=== PATIENT | male | born 1940 | race Two or more races ===

== ENCOUNTER 2022-09-25 23:08 | Inpatient (IN) | payer BC ==
[~2022-09-25] VITALS: Ht 175.3 cm; Wt 106.3 kg
[2022-09-26] VITALS (90 sets, daily range): BP systolic 84–204; BP diastolic 35–106
[2022-09-26] MEDS ORDERED: NOREPINEPHRINE 8 MG/250ML KIT 0 ML IV ONE (00:54)
[2022-09-26] MEDS ORDERED: AMIODARONE 450mg/250ml AE 250 ML IV ONE (00:54)
[2022-09-26] MEDS ORDERED: LIDOCAINE 4MG/ML IV SOLN 500 ML IV ONE (00:54)
[2022-09-26] MEDS: LIDOCAINE 4MG/ML IV SOLN 500 ML IV SCH (01:00)
[2022-09-26] MEDS ORDERED: FUROSEMIDE INJECTION 10 ML ONE (01:04)
[2022-09-26] MEDS ORDERED: ASPirin 325 MG TAB PO ONE (02:30)
[2022-09-26] MEDS ORDERED: FUROSEMIDE INJECTION 100 MG in SODIUM CHL 0.9% 100 ML IV SCH (02:30)
[2022-09-26] MEDS ORDERED: LORazepam 0.5 MG TAB PO ONE (02:30)
[2022-09-26] MEDS ORDERED: AMIODARONE 450mg/250ml AE 250 ML IV SCH (02:45)
[2022-09-26 03:26] LABS: Basophils # (auto) 0.1 10 ^3/uL (0-0.2); Basophils % (auto) 0.5 % (0.0-2.0); Eosinophils # (auto) 0.1 10 ^3/uL (0-0.8); Eosinophils % (auto) 0.5 % (0.0-7.0); Hematocrit 34.5 % (41.0-53.0); Hemoglobin 11.5 g/dL (13.5-17.5); Lymphocytes # (auto) 1.2 10 ^3/uL (0.4-5.4); Lymphocytes % (auto) 5.5 % (10.0-50.0); Mean Corpuscular Hemoglobin 32.3 pg (28.0-32.0); Mean Corpuscular Hgb Conc. 33.4 g/dL (32.0-36.0); Mean Corpuscular Volume 96.8 fL (80.0-100.0); Monocytes # (auto) 2.2 10 ^3/uL (0-1.3); Monocytes % (auto) 10.1 % (0.0-12.0); Neutrophils # (auto) 18.2 10 ^3/uL (1.6-8.6); Neutrophils % (auto) 83.4 % (37.0-80.0); Red Blood Cells 3.57 10^6/uL (4.5-5.90); Red Cell Distribution Width 13.1 % (11.8-14.3); White Blood Cell 21.8 10^3/uL (4.4-10.8)
[2022-09-26 03:43] LABS: Calcium 8.5 mg/dL (8.5-10.1); INR 1.12 (0.9-1.15); Partial Thromboplastin Time 29.9 sec (24.6-33.4); Potassium 3.4 mmol/L (3.5-5.1)
[2022-09-26 03:47] LABS: Albumin 2.3 g/dL (3.4-5.0); BUN/Creatinine Ratio 27.5; Magnesium 2.3 mg/dL (1.6-2.6)
[2022-09-26 03:58] LABS: Bilirubin, Total 0.4 mg/dL (0.2-1.0); Total Protein 6.4 g/dL (6.4-8.2)
[2022-09-26] MEDS ORDERED: HYDROcodone-ACET 5/325MG TAB PO PRN (04:45)
[2022-09-26] MEDS ORDERED: ONDANSETRON HCL 4 MG/2 ML VIAL IV PRN (04:45)
[2022-09-26] MEDS ORDERED: hydrALAZINE HCL 20 MG/ML VL IV PRN (04:45)
[2022-09-26] MEDS ORDERED: NITROGLYCERIN 0.4 MG SL TAB SL PRN (04:45)
[2022-09-26] MEDS ORDERED: cefTRIAXone 1GM/50ML D5W 50 ML IV ONE (04:45)
[2022-09-26] MEDS ORDERED: MORPHINE SULFATE INJ 2 MG/ml SYRG IV PRN ×2 (04:45)
[2022-09-26] MEDS ORDERED: LORazepam 2MG/ML-1ML VIAL IV PRN ×3 (04:45→13:45)
[2022-09-26] MEDS ORDERED: HEPARIN DRIP/D5W 100UNITS/ML 250 ML IV SCH ×2 (05:45→09:45)
[2022-09-26] MEDS ORDERED: HEPARIN IN NS 1000Units/500mL 0 ML ONE (06:08)
[2022-09-26 09:31] LABS: INR 1.12 (0.9-1.15); Partial Thromboplastin Time 21.6 sec (24.6-33.4)
[2022-09-26] MEDS ORDERED: HEPARIN SODIUM (PORCINE) 5000 UNITS/ML 1ML VIAL SC SCH (10:00)
[2022-09-26] MEDS: AMIODARONE 450mg/250ml AE 250 ML IV SCH ×2 (10:12→22:49)
[2022-09-26] MEDS: ASPirin 81 mg TAB PO SCH (10:13)
[2022-09-26] MEDS: FOLIC ACID 1 MG TAB PO SCH (10:13)
[2022-09-26] MEDS: TAMSULOSIN HYDROCHLORIDE 0.4 MG CAP PO SCH (10:13)
[2022-09-26] MEDS: FUROSEMIDE 40 MG/4 ML VIAL IV SCH (10:14)
[2022-09-26] MEDS: FAMOTIDINE (10MG/ML) 2ML VL IV SCH ×2 (10:14→21:51)
[2022-09-26] MEDS: THIAMINE HCL 100 MG TAB PO SCH (10:24)
[2022-09-26] MEDS ORDERED: LIDOCAINE VISCOUS 2% 15ML UD ONE (11:34)
[2022-09-26] MEDS: HEPARIN DRIP/D5W 100UNITS/ML 250 ML IV SCH (13:00)
[2022-09-26] MEDS ORDERED: ALPRAZolam 0.25 MG TAB PO PRN (13:30)
[2022-09-26] MEDS ORDERED: ETOMIDATE (2MG/ML) 20ML VIAL IV ONE ×3 (14:23→14:45)
[2022-09-26] MEDS ORDERED: ROCURONIUM 10MG/ML 10ML VIAL IV ONE ×2 (14:23→14:45)
[2022-09-26] MEDS ORDERED: PROPOFOL 100 ML IV ONE (14:24)
[2022-09-26] MEDS ORDERED: fentaNYL Drip 2500mCg/250mlNS 250 ML IV ONE (14:24)
[2022-09-26] MEDS: fentaNYL Drip 2500mCg/250mlNS 250 ML IV SCH (14:50)
[2022-09-26] MEDS: PROPOFOL 100 ML IV SCH (14:50)
[2022-09-26] MEDS ORDERED: MIDAZOLAM DRIP 50 mg/50mL 50 ML IV ONE (16:59)
[2022-09-26] MEDS: NOREPINEPHRINE 8 MG/250ML KIT 250 ML IV SCH ×2 (17:00→20:00)
[2022-09-26] MEDS ORDERED: VANCOMYCIN PER PHARMACY 0 MG IV SCH (17:15)
[2022-09-26] MEDS: MIDAZOLAM DRIP 50 mg/50mL 50 ML IV SCH (17:15)
[2022-09-26] MEDS: CEFEPIME 2 GM in SODIUM CHL 0.9% 50 ML IV SCH (18:32)
[2022-09-26] MEDS ORDERED: VANCOMYCIN 1GM/250ML 250 ML IV ONE (21:00)
[2022-09-26] MEDS: ATORVASTATIN 20 MG TAB PO SCH (21:51)
[2022-09-26] MEDS: ACETAMINOPHEN 325 MG TAB PO PRN (21:51)
[2022-09-26 23:44] LABS: INR 1.17 (0.9-1.15); Partial Thromboplastin Time 38.7 sec (24.6-33.4)
[2022-09-27] VITALS (101 sets, daily range): BP systolic 95–162; BP diastolic 44–70
[2022-09-27] MEDS: AMIODARONE 450mg/250ml AE 250 ML IV SCH ×2 (03:42→13:39)
[2022-09-27] MEDS: MIDAZOLAM DRIP 50 mg/50mL 50 ML IV SCH ×2 (03:42→17:19)
[2022-09-27 04:11] LABS: Hematocrit 33.3 % (41.0-53.0); Hemoglobin 11.3 g/dL (13.5-17.5); Mean Corpuscular Hemoglobin 32.6 pg (28.0-32.0); Mean Corpuscular Hgb Conc. 33.9 g/dL (32.0-36.0); Mean Corpuscular Volume 96.4 fL (80.0-100.0); Red Blood Cells 3.46 10^6/uL (4.5-5.90); Red Cell Distribution Width 13.2 % (11.8-14.3); White Blood Cell 20.3 10^3/uL (4.4-10.8)
[2022-09-27 04:28] LABS: INR 1.18 (0.9-1.15); Partial Thromboplastin Time 41.8 sec (24.6-33.4)
[2022-09-27 04:31] LABS: Albumin 2.3 g/dL (3.4-5.0); Calcium 8.3 mg/dL (8.5-10.1); Potassium 3.6 mmol/L (3.5-5.1)
[2022-09-27 04:36] LABS: BUN/Creatinine Ratio 24.1; Bilirubin, Total 0.6 mg/dL (0.2-1.0); Total Protein 6.4 g/dL (6.4-8.2)
[2022-09-27 04:48] LABS: Basophils % (manual) 0 (0.0-2.0); Blast Cells 0; Eosinophils % (manual) 0 (0-7); Metamyelocytes % 0; Myelocytes % 0; Promyelocytes % 0; Reactive Lymphocytes 0
[2022-09-27] MEDS: CEFEPIME 2 GM in SODIUM CHL 0.9% 50 ML IV SCH ×2 (05:04→17:11)
[2022-09-27] MEDS: HEPARIN DRIP/D5W 100UNITS/ML 250 ML IV SCH ×2 (07:44→14:02)
[2022-09-27 08:10] LABS: Band Neutrophils % (manual) 6; Lymphocytes % (manual) 5 (10.0-50.0); Monocytes % (manual) 6 (0-12)
[2022-09-27] MEDS ORDERED: cefTRIAXone 1GM/50ML D5W 50 ML IV SCH (09:00)
[2022-09-27] MEDS: LIDOCAINE 4MG/ML IV SOLN 500 ML IV SCH (10:30)
[2022-09-27] MEDS: ASPirin 81 mg TAB PO SCH (10:31)
[2022-09-27] MEDS: FUROSEMIDE 40 MG/4 ML VIAL IV SCH (10:31)
[2022-09-27] MEDS: FAMOTIDINE (10MG/ML) 2ML VL IV SCH ×2 (10:31→21:33)
[2022-09-27] MEDS: FOLIC ACID 1 MG TAB PO SCH (10:31)
[2022-09-27] MEDS: THIAMINE HCL 100 MG TAB PO SCH (10:32)
[2022-09-27] MEDS: fentaNYL Drip 2500mCg/250mlNS 250 ML IV SCH (10:34)
[2022-09-27] MEDS: ACETAMINOPHEN 325 MG TAB PO PRN (10:36)
[2022-09-27 11:23] LABS: INR 1.13 (0.9-1.15); Partial Thromboplastin Time 42.6 sec (24.6-33.4)
[2022-09-27] MEDS ORDERED: VANCOMYCIN 1GM/250ML 250 ML IV ONE (12:00)
[2022-09-27] MEDS: PROPOFOL 100 ML IV SCH (14:30)
[2022-09-27 17:15] LABS: INR 1.13 (0.9-1.15); Partial Thromboplastin Time 43.6 sec (24.6-33.4)
[2022-09-27] MEDS: TAMSULOSIN HYDROCHLORIDE 0.4 MG CAP PO SCH (17:37)
[2022-09-27] MEDS: ATORVASTATIN 20 MG TAB PO SCH (21:33)
[2022-09-28] VITALS (100 sets, daily range): BP systolic 106–151; BP diastolic 35–67
[2022-09-28] MEDS: AMIODARONE 450mg/250ml AE 250 ML IV SCH (02:24)
[2022-09-28] MEDS: MIDAZOLAM DRIP 50 mg/50mL 50 ML IV SCH (02:25)
[2022-09-28 04:42] LABS: Basophils # (auto) 0.1 10 ^3/uL (0-0.2); Basophils % (auto) 0.2 % (0.0-2.0); Eosinophils # (auto) 0.3 10 ^3/uL (0-0.8); Eosinophils % (auto) 1.4 % (0.0-7.0); Hemoglobin 10.5 g/dL (13.5-17.5); Lymphocytes # (auto) 0.8 10 ^3/uL (0.4-5.4); Lymphocytes % (auto) 3.2 % (10.0-50.0); Mean Corpuscular Hemoglobin 32.7 pg (28.0-32.0); Mean Corpuscular Volume 96.3 fL (80.0-100.0); Monocytes # (auto) 2.1 10 ^3/uL (0-1.3); Neutrophils # (auto) 20.5 10 ^3/uL (1.6-8.6); Neutrophils % (auto) 86.2 % (37.0-80.0); Red Blood Cells 3.22 10^6/uL (4.5-5.90); Red Cell Distribution Width 13.2 % (11.8-14.3); White Blood Cell 23.8 10^3/uL (4.4-10.8)
[2022-09-28 04:46] LABS: INR 1.12 (0.9-1.15); Partial Thromboplastin Time 40.7 sec (24.6-33.4)
[2022-09-28] MEDS: CEFEPIME 2 GM in SODIUM CHL 0.9% 50 ML IV SCH ×2 (05:03→17:27)
[2022-09-28 05:14] LABS: Calcium 8.5 mg/dL (8.5-10.1); Potassium 4.1 mmol/L (3.5-5.1)
[2022-09-28 05:16] LABS: BUN/Creatinine Ratio 27.5
[2022-09-28 05:19] LABS: Bilirubin, Total 0.5 mg/dL (0.2-1.0); Total Protein 6.3 g/dL (6.4-8.2)
[2022-09-28] MEDS: HEPARIN DRIP/D5W 100UNITS/ML 250 ML IV SCH (08:38)
[2022-09-28] MEDS: FAMOTIDINE (10MG/ML) 2ML VL IV SCH ×2 (09:57→22:01)
[2022-09-28] MEDS: FUROSEMIDE 40 MG/4 ML VIAL IV SCH (09:57)
[2022-09-28] MEDS: FOLIC ACID 1 MG TAB PO SCH (09:57)
[2022-09-28] MEDS: THIAMINE HCL 100 MG TAB PO SCH (09:57)
[2022-09-28] MEDS: ASPirin 81 mg TAB PO SCH (09:57)
[2022-09-28] MEDS ORDERED: VANCOMYCIN 1GM/250ML 250 ML IV ONE (10:00)
[2022-09-28 11:35] LABS: INR 1.38 (0.9-1.15); Partial Thromboplastin Time 27.9 sec (24.6-33.4)
[2022-09-28] MEDS: PROPOFOL 100 ML IV SCH (14:30)
[2022-09-28] MEDS ORDERED: GENTAMICIN SULFATE 80 MG in D5W 5% 100 ML IV SCH (16:00)
[2022-09-28] MEDS ORDERED: GENTAMICIN PER PHARMACY 0 ML IV SCH (16:00)
[2022-09-28] MEDS: NOREPINEPHRINE 8 MG/250ML KIT 250 ML IV SCH (17:00)
[2022-09-28] MEDS: TAMSULOSIN HYDROCHLORIDE 0.4 MG CAP PO SCH (17:27)
[2022-09-28] MEDS: GENTAMICIN SULFATE 80 MG in D5W 5% 100 ML IV SCH (18:29)
[2022-09-28] MEDS: LIDOCAINE 4MG/ML IV SOLN 500 ML IV SCH (20:05)
[2022-09-28] MEDS: ATORVASTATIN 20 MG TAB PO SCH (22:01)
[2022-09-29] VITALS (94 sets, daily range): BP systolic 109–144; BP diastolic 32–65
[2022-09-29] MEDS: MIDAZOLAM DRIP 50 mg/50mL 50 ML IV SCH ×4 (00:48→18:15)
[2022-09-29] MEDS: fentaNYL Drip 2500mCg/250mlNS 250 ML IV SCH ×2 (02:10→14:30)
[2022-09-29 04:13] LABS: Hematocrit 30.8 % (41.0-53.0); Hemoglobin 10.4 g/dL (13.5-17.5); Mean Corpuscular Hgb Conc. 33.8 g/dL (32.0-36.0); Mean Corpuscular Volume 94.6 fL (80.0-100.0); Red Blood Cells 3.25 10^6/uL (4.5-5.90); Red Cell Distribution Width 13.2 % (11.8-14.3); White Blood Cell 26.1 10^3/uL (4.4-10.8)
[2022-09-29 04:17] LABS: Basophils % (manual) 0 (0.0-2.0); Blast Cells 0; Metamyelocytes % 0; Myelocytes % 0; Promyelocytes % 0; Reactive Lymphocytes 0
[2022-09-29 04:23] LABS: INR 1.16 (0.9-1.15); Partial Thromboplastin Time 41.8 sec (24.6-33.4)
[2022-09-29 04:31] LABS: BUN/Creatinine Ratio 31.2 (10.0-20.0); Calcium 8.3 mg/dL (8.5-10.1)
[2022-09-29 04:34] LABS: Bilirubin, Total 0.5 mg/dL (0.2-1.0); Total Protein 6.4 g/dL (6.4-8.2)
[2022-09-29] MEDS: CEFEPIME 2 GM in SODIUM CHL 0.9% 50 ML IV SCH ×2 (05:18→17:54)
[2022-09-29 05:20] LABS: Band Neutrophils % (manual) 9; Eosinophils % (manual) 2 (0-7); Lymphocytes % (manual) 5 (10.0-50.0); Monocytes % (manual) 9 (0-12)
[2022-09-29] MEDS: HEPARIN DRIP/D5W 100UNITS/ML 250 ML IV SCH ×3 (06:41→18:18)
[2022-09-29] MEDS: AMIODARONE 450mg/250ml AE 250 ML IV SCH ×2 (10:00→18:13)
[2022-09-29] MEDS: FAMOTIDINE (10MG/ML) 2ML VL IV SCH (10:19)
[2022-09-29] MEDS: FUROSEMIDE 40 MG/4 ML VIAL IV SCH (10:19)
[2022-09-29] MEDS: ASPirin 81 mg TAB PO SCH (10:20)
[2022-09-29] MEDS: FOLIC ACID 1 MG TAB PO SCH (10:20)
[2022-09-29] MEDS: ACETAMINOPHEN 325 MG TAB PO PRN (10:20)
[2022-09-29] MEDS: THIAMINE HCL 100 MG TAB PO SCH (10:21)
[2022-09-29] MEDS ORDERED: VANCOMYCIN 1GM/250ML 250 ML IV ONE (10:30)
[2022-09-29] MEDS: LIDOCAINE 4MG/ML IV SOLN 500 ML IV SCH (13:30)
[2022-09-29] MEDS: PROPOFOL 100 ML IV SCH (14:30)
[2022-09-29] MEDS: NOREPINEPHRINE 8 MG/250ML KIT 250 ML IV SCH (17:00)
[2022-09-29] MEDS: GENTAMICIN SULFATE 80 MG in D5W 5% 100 ML IV SCH (18:01)
[2022-09-29] MEDS: TAMSULOSIN HYDROCHLORIDE 0.4 MG CAP PO SCH (18:12)
== END 2022-09-29 21:09 | disposition short-term general hospital (02) | DRG 871 ==
LOC: ICU WEST 09-26 00:45
PROVIDERS: ADMIT Nurse Practitioner Family; ATTEND Internal Medicine
PROC: B246ZZ4 Ultrasonography of Right and Left Heart, Transesophageal (ICD-10-PCS; principal; 2022-09-26)
PROC: 0BH17EZ Insertion of Endotracheal Airway into Trachea, Via Natural or Artificial Opening (ICD-10-PCS; 2022-09-26)
PROC: 05HC33Z Insertion of Infusion Device into Left Basilic Vein, Percutaneous Approach (ICD-10-PCS; 2022-09-26)
PROC: B54NZZA Ultrasonography of Left Upper Extremity Veins, Guidance (ICD-10-PCS; 2022-09-26)
PROC: 5A1945Z Respiratory Ventilation, 24-96 Consecutive Hours (ICD-10-PCS; 2022-09-26)
PROC: 5A09357 Assistance with Respiratory Ventilation, Less than 24 Consecutive Hours, Continuous Positive Airway Pressure (ICD-10-PCS; 2022-09-26)
PROC: 02HV33Z Insertion of Infusion Device into Superior Vena Cava, Percutaneous Approach (ICD-10-PCS; 2022-09-26)
PROC: B548ZZA Ultrasonography of Superior Vena Cava, Guidance (ICD-10-PCS; 2022-09-26)
DX: A41.9 Sepsis, unspecified organism (principal); I21.4 Non-ST elevation (NSTEMI) myocardial infarction; I33.0 Acute and subacute infective endocarditis; J96.01 Acute respiratory failure with hypoxia; R65.21 Severe sepsis with septic shock; I13.0 Hypertensive heart and chronic kidney disease with heart failure and stage 1 through stage 4 chronic kidney disease, or unspecified chronic kidney disease; I47.20 Ventricular tachycardia, unspecified; J98.11 Atelectasis; N40.0 Benign prostatic hyperplasia without lower urinary tract symptoms; Z20.822 Contact with and (suspected) exposure to COVID-19; N18.30 Chronic kidney disease, stage 3 unspecified; M10.9 Gout, unspecified; I25.10 Atherosclerotic heart disease of native coronary artery without angina pectoris; I50.9 Heart failure, unspecified; D64.9 Anemia, unspecified; Z96.653 Presence of artificial knee joint, bilateral; Z95.0 Presence of cardiac pacemaker; Z95.1 Presence of aortocoronary bypass graft
CPT/HCPCS: 36415; 36600; 71045; 71250; 80053; 80170; 80202; 82805; 83615; 83735; 83880; 84443; 84484; 85007; 85025; 85027; 85610; 85730; 87040; 87070; 87081; 87205; 87426; 93306; 93312; 94002; 94003; G0378; J0696; J2250; J2704; J3490; J7060